=== PATIENT | female | born 1970 | race Two or more races ===

== ENCOUNTER 2023-05-02 00:27 | Emergency (ER) | payer OTHER ==
[~2023-05-02] VITALS: Ht 154.9 cm; Wt 66.7 kg
[~2023-05-02 00:27] MED LIST: OSEL75CA PO; TOPROL XL50 MG; ZOFRAN4 MG PO
[2023-05-02] MEDS ORDERED: COZAAR25 MG PO (00:46)
[2023-05-02 02:01] LABS: HEMATOCRIT 35.9 % (36.0-45.00); HEMOGLOBIN 11.9 g/dL (12.0-15.00); MEAN CELL VOLUME 89.4 fL (80.00-100.00); MEAN CORPUSCULAR HEMOGLOBIN 29.7 pg (27.00-32.0); MEAN CORPUSCULAR HGB CONC 33.2 g/dl (32.0-36.0); PLATELET COUNT 192 K/uL (150-450); RED BLOOD COUNT 4.01 M/uL (4.00-6.00); RED CELL DISTRIBUTION WIDTH 13.4 % (11.5-14.5)
[2023-05-02 02:09] LABS: INR 0.95; PARTIAL THROMBOPLASTIN TIME 24.6 SECONDS (22.0-34.0)
[2023-05-02 02:13] LABS: ALBUMIN 4.1 gm/dL (3.4-5.0); BILIRUBIN TOTAL 0.52 mg/dL (0.3-1.2); CALCIUM 9.4 mg/dL (8.5-10.1); CREATININE SERUM 0.73 mg/dL (0.55-1.02); GFR 83.08; GLOBULINA 3.4 G/DL (2.4-3.5); POTASSIUM 4.12 mEq/L (3.5-5.1); TOTAL PROTEIN 7.5 gm/dL (6.4-8.2)
[2023-05-02 03:39] LABS: PH,URINE 5.5 (5.0-8.0); URINE APPEARANCE Clear; URINE BILIRRUBIN Negative (NEGATIVE); URINE BLOOD Trace; URINE COLOR Yellow; URINE GLUCOSE Negative (NEGATIVE); URINE LEUKOCYTE Moderate; URINE NITRATE Negative; URINE PROTEIN Negative (NEGATIVE); URINE UROBILINOGEN 0.2 E.U./dl
[2023-05-02 03:57] LABS: URINE BACTERIA 2784.2 uL (0.0-1933); URINE EPITHELIAL CELLS 7.4 uL (0.0-38.8); URINE RBC 5.6 uL (0.0-20.8); URINE WBC 207.7 uL (0.0-23.2)
[2023-05-02] MEDS ORDERED: CEPHALEXIN500 MG PO (08:50)
[2023-05-02] MEDS ORDERED: KETO10TA2 PO (08:50)
== END 2023-05-02 09:45 | disposition home or self-care (01) ==
LOC: ER 00:27
PROVIDERS: General Practice
DX: R07.89 Other chest pain (principal); N39.0 Urinary tract infection, site not specified; Z20.822 Contact with and (suspected) exposure to COVID-19

== ENCOUNTER 2025-01-24 22:21 | Emergency (ER) | payer OTHER ==
[~2025-01-24] VITALS: Ht 154.9 cm; Wt 64.4 kg
[~2025-01-24 22:21] MED LIST changes: +CEPHALEXIN500 MG PO; +COZAAR25 MG PO; +KETO10TA2 PO
[2025-01-25 00:20] LABS: BASO % 0.3 % (0.1-1.2); EOS # 0.11 (0.04-0.54); EOS % 1.6 % (0.7-7.0); LYMPH # 2.77 (1.18-3.74); LYMPH % 40.3 % (19.3-53.1); MEAN PLATELET VOLUME 10.50 fl (9.4-12.4); MONO # 0.60 (0.24-0.82); MONO % 8.7 % (4.7-12.5); NEUT # 3.37 (1.56-6.13); NEUT % 49.0 % (34.0-71.1); RED CELL DISTRIBUTION WIDTH 11.9 % (11.6-14.4)
[2025-01-25 01:01] LABS: URINE APPEARANCE Clear; URINE BILIRRUBIN Negative (NEGATIVE); URINE BLOOD Trace; URINE COLOR Yellow; URINE GLUCOSE Negative (NEGATIVE); URINE KETONE Negative (NEGATIVE); URINE LEUKOCYTE Small; URINE NITRATE Negative; URINE PROTEIN Negative (NEGATIVE); URINE UROBILINOGEN 0.2 E.U./dl
[2025-01-25 01:05] LABS: URINE BACTERIA 3294.7 uL (0.0-1933); URINE EPITHELIAL CELLS 12.9 uL (0.0-38.8); URINE RBC 8.2 uL (0.0-20.8); URINE WBC 185.9 uL (0.0-23.2)
[2025-01-25 01:07] LABS: URINE CAST 0.00 uL (0.0-1.40)
[2025-01-25] MEDS ORDERED: KETOROLAC TROMETHAMINE 60 MG VIAL IM STA (01:28)
== END 2025-01-25 01:39 | disposition home or self-care (01) ==
LOC: ER 22:21
PROVIDERS: Preventive Medicine Public Health & General Preventive Medicine
DX: G89.11 Acute pain due to trauma (principal); M54.50 Low back pain, unspecified; I10 Essential (primary) hypertension